=== PATIENT | female | born 1955 | race Caucasian/White ===

== ENCOUNTER 2023-04-28 21:10 | Inpatient (IN) | payer OTHER ==
[~2023-04-28] VITALS: Ht 165.1 cm; Wt 130.2 kg
[2023-04-28 21:26] VITALS: O2SAT 96
[2023-04-28 23:01] LABS: BASOPHILS % 0.3 % (0.0-2.0); EOSINOPHILS % 2.3 % (0.0-5.0); HEMATOCRIT. 39.8 % (36.0-48.0); HEMOGLOBIN. 12.5 g/dL (12.0-16.0); LYMPHOCYTES % 10.5 % (20.0-50.0); MEAN CORPUSCULAR HEMOGLOBIN 27.1 pg (28.0-32.0); MEAN CORPUSCULAR HGB CONC 31.3 g/dL (31.0-37.0); MEAN CORPUSCULAR VOLUME 86.6 fL (81.0-99.0); MEAN PLATELET VOLUME 8.7 fl (7.4-10.4); NEUTROPHILS % 79.9 % (40.0-76.0); PLATELET 226 x1000/uL (130-400); RED CELL DISTRIBUTION WIDTH 16.5 % (11.6-14.6); WHITE BLOOD COUNT 13.6 x1000/uL (4.5-11.0)
[2023-04-28 23:26] LABS: ALANINE AMINOTRANSFERASE 19 IU/L (10-49); ALBUMIN 3.8 g/dL (3.2-4.8); ASPARTATE AMINOTRANSFERASE 15 IU/L (<34); BILIRUBIN TOTAL 0.2 mg/dL (0.1-1.0); CALCIUM 9.2 mg/dL (8.7-10.4); CARBON DIOXIDE 28 mEq/L (21-32); CHLORIDE 101 mEq/L (98-107); CREATININE 1.8 mg/dL (0.6-1.0); POTASSIUM 3.2 mEq/L (3.5-5.1); SODIUM 139 mEq/L (136-145); UREA NITROGEN BLOOD 30 mg/dL (9-23)
[2023-04-28 23:39] LABS: GLUCOSE 24 mg/dL (70-105)
[2023-04-29] MEDS ORDERED: CEFTRIAXONE 1GM PREMIX 50 ML IV ONE (03:00)
[2023-04-29] MEDS ORDERED: DEXTROSE 50% WATER 50ML SYRINGE IV ONE ×4 (04:04→09:45)
[2023-04-29] MEDS ORDERED: DEXT 10% WATER 1,000 ML IV ONE (04:15)
[2023-04-29 07:51] LABS: CLARITY URINE CLEAR (CLEAR); COLOR URINE YELLOW (YELLOW); GLUCOSE URINE NEGATIVE (NEGATIVE); KETONES URINE NEGATIVE (NEGATIVE); LEUKOCYTE ESTERASE URINE TRACE (NEGATIVE); NITRITE URINE NEGATIVE (NEGATIVE); OCCULT BLOOD URINE NEGATIVE (NEGATIVE); PH URINE 5.5 (4.5-8.0); PROTEIN URINE NEGATIVE (NEGATIVE); UROBILINOGEN URINE 0.2 E.U./dL (0.2-1.0)
[2023-04-29 07:54] LABS: RBC URINE 0-2 /hpf (0-2); SQUAMOUS EPITHELIAL CELL URINE 1+ /lpf (RARE/1+)
[2023-04-29 07:55] LABS: BACTERIA URINE 2+; YEAST URINE NONE SEEN
[2023-04-29] MEDS ORDERED: DOCUSATE SODIUM 100MG CAPSULE PO PRN (10:30)
[2023-04-29] MEDS ORDERED: AMLODIPINE 10MG TABLET PO SCH (10:30)
[2023-04-29] MEDS ORDERED: CLONIDINE 0.1MG TABLET PO PRN (10:30)
[2023-04-29] MEDS ORDERED: KETOROLAC 15MG/ML VIAL IV PRN (10:30)
[2023-04-29] MEDS ORDERED: GUAIFENESIN 200MG/10ML SUGAR FREE UDC PO PRN (10:30)
[2023-04-29] MEDS ORDERED: CEFTRIAXONE 1GM PREMIX 50 ML IV SCH (10:30)
[2023-04-29] MEDS ORDERED: ONDANSETRON HCL 4MG/2ML INJ IV PRN (10:30)
[2023-04-29] MEDS ORDERED: MAGNESIUM/ALUMINUM HYDROXIDE/SIMETHICONE 30ML UDC PO PRN (10:30)
[2023-04-29] MEDS ORDERED: IPRATROPIUM/ALBUTEROL 0.5-3(2.5)MG/3ML NEB NEB PRN (10:30)
[2023-04-29] MEDS ORDERED: ACETAMINOPHEN 325MG TABLET PO PRN ×2 (10:30)
[2023-04-29] MEDS ORDERED: ENOXAPARIN 30MG/0.3ML SYR SUBCUT SCH (10:44)
[2023-04-29] MEDS ORDERED: NITROGLYCERIN 0.4MG TABLET SL SL PRN (10:45)
[2023-04-29] MEDS ORDERED: AZITHROMYCIN 500MG/250ML 250 ML IV NR (10:45)
[2023-04-29] MEDS ORDERED: HYDRALAZINE HCL 25MG TABLET PO NR (10:51)
[2023-04-29] MEDS ORDERED: IOHEXOL-350 100 ML BOTTLE ONE (11:15)
[2023-04-29 11:48] LABS: CHOLESTEROL 100 mg/dL (<200); HDL CHOLESTEROL 35 mg/dL (>65); IRON 43 ug/dL (50-170); LDL CHOLESTEROL 57 mg/dL (5-100); T4 FREE 1.36 ng/dL (0.89-1.76); THYROID STIMULATING HORMONE 0.97 uIU/mL (0.55-4.78); TOTAL IRON BINDING CAPACITY 619 ug/dl (250-425); TRIGLYCERIDE 109 mg/dL (0-150)
[2023-04-29 11:55] LABS: PROTHROMBIN TIME 30.3 sec (9.6-11.0)
[2023-04-29 12:00] VITALS: BP 117/58; PULSE 88; RESP 15; TEMP 98.2
[2023-04-29 13:07] VITALS: BP 117/58; PULSE 88; RESP 15; TEMP 98.2
[2023-04-29] MEDS: HYDRALAZINE HCL 50MG TABLET PO SCH ×2 (14:00→20:43)
[2023-04-29] MEDS ORDERED: AZITHROMYCIN 500 MG in DEXT 5% WATER 250 ML IV SCH (14:00)
[2023-04-29] MEDS: DEXT 5%/LACTATED RINGERS 1,000 ML IV SCH ×2 (14:21→18:22)
[2023-04-29 15:36] LABS: CREATINE KINASE 81 IU/L (34-145); CREATINE KINASE MB FRACTION 1.3 ng/mL (0.5-3.6); TROPONIN I HIGH SENSITIVITY 6 ng/L (3.0-34)
[2023-04-29 16:00] VITALS: BP 123/71; PULSE 80; RESP 20; TEMP 98.1
[2023-04-29 16:47] LABS: VITAMIN B12 SERUM 557 pg/mL (211-911)
[2023-04-29] MEDS ORDERED: DEXTROSE 50% WATER 50ML SYRINGE IV PRN (18:00)
[2023-04-29] MEDS ORDERED: WARFARIN SODIUM 1MG TABLET PO SCH (18:00)
[2023-04-29] MEDS ORDERED: DEXTROSE 10% WATER 500 ML IV SCH (18:00)
[2023-04-29] MEDS ORDERED: POTASSIUM CHLORIDE 20MEQ TABLET SR PO NR (18:15)
[2023-04-29 20:00] VITALS: BP 142/77; PULSE 76; RESP 24; TEMP 98
[2023-04-29 21:00] VITALS: BP 136/77; PULSE 73; RESP 21
[2023-04-29] MEDS ORDERED: AMITRIPTYLINE 10MG TABLET PO SCH (21:00)
[2023-04-29] MEDS: BLOOD SUGAR DIAGNOSTIC STRIP TEST SCH (21:00)
[2023-04-29] MEDS ORDERED: ZOLPIDEM TARTRATE 5MG TABLET PO PRN (21:00)
[2023-04-29] MEDS ORDERED: ARIPIPRAZOLE 5MG TABLET PO SCH (21:00)
[2023-04-29 23:05] LABS: FOLIC ACID (FOLATE) SERUM 10.63 ng/mL (>5.38)
[2023-04-30] VITALS: BP 100/62; PULSE 71; RESP 19; TEMP 98.1
[2023-04-30 00:27] LABS: CREATINE KINASE MB FRACTION 1.2 ng/mL (0.5-3.6)
[2023-04-30 04:00] VITALS: BP 101/55; PULSE 71; RESP 15; TEMP 97.8
[2023-04-30] MEDS: DEXT 5%/LACTATED RINGERS 1,000 ML IV SCH (04:01)
[2023-04-30] MEDS: HYDRALAZINE HCL 50MG TABLET PO SCH (05:08)
[2023-04-30] MEDS ORDERED: CEFTRIAXONE 1,000 MG in DEXTROSE 5% WATER 50 ML IV SCH (06:00)
[2023-04-30 06:37] LABS: INR 2.8; PROTHROMBIN TIME 28.1 sec (9.6-11.0)
[2023-04-30 06:53] LABS: BASOPHILS % 0.3 % (0.0-2.0); EOSINOPHILS % 6.5 % (0.0-5.0); HEMOGLOBIN. 11.8 g/dL (12.0-16.0); LYMPHOCYTES % 24.6 % (20.0-50.0); MEAN CORPUSCULAR HEMOGLOBIN 27.7 pg (28.0-32.0); MEAN CORPUSCULAR HGB CONC 32.8 g/dL (31.0-37.0); MEAN CORPUSCULAR VOLUME 84.5 fL (81.0-99.0); MONOCYTES % 8.1 % (2.0-8.0); NEUTROPHILS % 60.5 % (40.0-76.0); PLATELET 200 x1000/uL (130-400); RED BLOOD CELL COUNT 4.26 mill/uL (4.2-5.4); RED CELL DISTRIBUTION WIDTH 16.2 % (11.6-14.6)
[2023-04-30 07:22] LABS: ALANINE AMINOTRANSFERASE 16 IU/L (10-49); ALBUMIN 3.4 g/dL (3.2-4.8); ASPARTATE AMINOTRANSFERASE 9 IU/L (<34); BILIRUBIN TOTAL 0.6 mg/dL (0.1-1.0); CALCIUM 9.4 mg/dL (8.7-10.4); CARBON DIOXIDE 32 mEq/L (21-32); CHLORIDE 103 mEq/L (98-107); CREATININE 1.1 mg/dL (0.6-1.0); GLUCOSE 213 mg/dL (70-105); PHOSPHORUS 3.3 mg/dL (2.5-4.9); POTASSIUM 3.9 mEq/L (3.5-5.1); PROTEIN TOTAL 5.8 g/dL (6.0-8.3); SODIUM 139 mEq/L (136-145); UREA NITROGEN BLOOD 21 mg/dL (9-23)
[2023-04-30] MEDS: BLOOD SUGAR DIAGNOSTIC STRIP TEST SCH (07:30)
[2023-04-30] MEDS ORDERED: LEVOTHYROXINE SODIUM 150MCG TABLET PO SCH (07:30)
[2023-04-30] MEDS ORDERED: ASPIRIN 325MG EC TABLET PO SCH (09:00)
[2023-04-30] MEDS ORDERED: PANTOPRAZOLE SODIUM 40 MG/VIAL IV SCH (09:00)
[2023-04-30] MEDS ORDERED: AZITHROMYCIN 500 MG in DEXT 5% WATER 250 ML IV SCH (11:00)
[2023-04-30] MEDS ORDERED: HYDR100T31 PO (16:14)
[2023-04-30] MEDS ORDERED: LEVO150T8 PO (16:14)
[2023-04-30] MEDS ORDERED: TRAZ-252 PO (16:14)
[2023-04-30] MEDS ORDERED: WARF-67 PO (16:14)
[2023-04-30] MEDS ORDERED: METF-414 PO (16:14)
[2023-04-30] MEDS ORDERED: ARIP5TAB58 PO (16:14)
[2023-04-30] MEDS ORDERED: WARFARIN SODIUM 2MG TABLET PO SCH (18:00)
[2023-04-30] MEDS ORDERED: DEXTROSE 50% WATER 50ML SYRINGE IV PRN (18:30)
[2023-04-30] MEDS ORDERED: INSULIN LISPRO 100 UNITS/ML SUBCUT SCH (21:00)
[2023-04-30] MEDS ORDERED: BLOOD SUGAR DIAGNOSTIC STRIP TEST SCH (21:00)
[2023-05-01] MEDS ORDERED: AZITHROMYCIN 500 MG TABLET PO SCH (14:00)
== END 2023-04-30 19:32 | disposition short-term general hospital (02) | DRG 637 ==
LOC: ER 22:10 → 5EST 04-29 09:38 → 5WST 04-30 07:54
PROVIDERS: ADMIT Internal Medicine; ATTEND Internal Medicine
DX: E11.649 Type 2 diabetes mellitus with hypoglycemia without coma (principal); G93.41 Metabolic encephalopathy; E03.9 Hypothyroidism, unspecified; I11.9 Hypertensive heart disease without heart failure; K59.00 Constipation, unspecified; Z20.822 Contact with and (suspected) exposure to COVID-19; Z79.01 Long term (current) use of anticoagulants; Z79.82 Long term (current) use of aspirin; Z86.711 Personal history of pulmonary embolism; Z88.2 Allergy status to sulfonamides; Z88.3 Allergy status to other anti-infective agents; Z79.899 Other long term (current) drug therapy
CPT/HCPCS: 36415; 71045; 71275; 74177; 80053; 80061; 81003; 82550; 82553; 82607; 82746; 82962; 83036; 83540; 83550; 83605; 83735; 83880; 84100; 84145; 84439; 84443; 84484; 85025; 87426; 87804; 93005; 93306; 93970; 96365; 96368; 96376; 99291; C9113; C9803; J0456; J0696; J7060; Q9967